=== PATIENT | female | born 1975 | race Caucasian/White ===

== ENCOUNTER → 2018-05-22 13:40 | Outpatient (CLI) | payer BC, SELFPAY ==
[2018-05-25 12:43] LABS: HPV Reflexed? NOT INDICATED
== END ==
PROVIDERS: Visit Provider Obstetrics & Gynecology
DX: Z12.4 Encounter for screening for malignant neoplasm of cervix (principal)
CPT/HCPCS: 88175; G0145

== ENCOUNTER → 2018-06-23 09:58 | Outpatient (CLI) | payer BC, SELFPAY ==
--- NOTE | 2018-06-23 10:14 | BI_ITS ---
MAMMOGRAPHY - BILATERAL SCREENING REASON FOR EXAM: Female, 42 years old. Routine annual screening examination. PERTINENT HISTORY: Non-contributory. TECHNIQUE: Digital bilateral breast eris (3D mammographic acquisition) in the CC and MLO projections. 2-D mediolateral oblique (MLO) and craniocaudad (CC) views of both breasts were obtained. CAD: Full Field Digital Mammography with Computer Added Detection was performed. COMPARISON: Comparison is made with prior study dated May 25, 2017 and September 30, 2014. FINDINGS: Breast Composition: The breasts are heterogeneously dense, which may obscure small masses. There are no dominant masses or suspicious calcifications. Stable 1.1 cm x 0.8 cm well-defined nodular density in the superior deep slightly medial aspect of the left breast. Stable retroareolar nodule in the right breast. Prior ultrasound demonstrated the right nodule to be a cyst. No other significant abnormalities are identified. There has been no significant change since the prior study. BI/SCREENING MAMM (CAD), BILAT IMPRESSION: Stable bilateral screening mammogram. Yearly follow-up mammogram recommended. (A) ASSESSMENT CATEGORY: BIRADS Category 2: Benign. A letter regarding these results will be sent to the patient by the facility within 30 days. Approximately 10% of breast cancers are not detected by mammography. A normal mammogram should not delay biopsy of a clinically suspicious abnormality. [id number] Electronically Signed: Alexey Joseph MD at 10:11 EST , Service support ,
== END ==
PROVIDERS: Family Provider Internal Medicine; PCP Internal Medicine; Referring Provider Obstetrics & Gynecology; Visit Provider Obstetrics & Gynecology
DX: Z12.31 Encounter for screening mammogram for malignant neoplasm of breast (principal)
CPT/HCPCS: 77063; 77067

== ENCOUNTER → 2019-01-21 | Outpatient (CLI) | payer BC, SELFPAY ==
--- NOTE | 2019-01-21 12:28 | ECHOD_ITS ---
Reason For Study: Chest Pain Procedure This was a 2D Doppler, Color Flow transthoracic echocardiogram. Exam performed in department. Left Ventricle Normal LV size. Left ventricular systolic function is normal. The estimated ejection fraction is 65 %. No evidence for diastolic dysfunction. No regional wall motion abnormalities noted. Right Ventricle Normal RV size. Normal systolic function. Atria Normal left atrium. Normal right atrium. Bubble contrast study negative for right to left interatrial shunt. Mitral Valve Normal mitral valve. Tricuspid Valve Normal tricuspid valve. Mild tricuspid valve insufficiency. Pulmonic Valve Normal pulmonic valve. Great Vessels Normal aortic root. The pulmonary artery is normal size. Normal inferior vena cava. Pericardium/Pleural No pericardial effusion. Medication Performed a rapid injection of agitated mix of 9 cc saline and 1cc air to assess for atrial septal defect. MMode/2D Measurements & Calculations LVIDd: 4.2 cm IVSd: 0.91 cm Ao root diam: 3.0 cm LVIDs: 2.4 cm LVPWd: 0.94 cm RVDd: 3.6 cm FS: 42.9 % LAV(MOD-bp): 43.2 ml LVAd ap4: 25.5 cm2 SV(MOD-sp4): 50.5 ml LAV(MOD-bp) Indexed: 26.0 ml/m2 EDV(MOD-sp4): 72.9 ml LAV(MOD-sp2): 46.6 ml EDV(sp4-el): 75.1 ml LAV(MOD-sp4): 40.0 ml LVAs ap4: 12.3 cm2 ESV(MOD-sp4): 22.5 ml ESV(sp4-el): 23.2 ml EF(MOD-sp4): 69.2 % EF(sp4-el): 69.1 % SV(sp4-el): 51.9 ml LA A4 area: 15.4 cm2 LA dimension(2D): 3.7 cm RA A4 area: 13.1 cm2 Doppler Measurements & Calculations MV E max dereck: 81.9 cm/sec Lat Peak E' Dereck: 13.7 cm/sec Med Peak E' Dereck: 6.3 cm/sec MV A max dereck: 67.6 cm/sec E/E' lat: 6.0 E/E' med: 13.0 MV E/A: 1.2 Ao V2 max: 163.4 cm/sec LV V1 max: 128.0 cm/sec PA V2 max: 83.8 cm/sec Ao max P.7 mmHg LV V1 max P.5 mmHg Ao V2 mean: 105.0 cm/sec Ao mean P.1 mmHg Ao V2 VTI: 31.4 cm TR max dereck: 218.7 cm/sec TR max P.1 mmHg Interpretation Summary Normal LV size. Left ventricular systolic function is normal. The estimated ejection fraction is 65 %. No evidence for diastolic dysfunction. Bubble contrast study negative for right to left interatrial shunt. Ordering Physician: Ana Bell Referring Physician: Ana Bell Performed By: Bernie Granger, HANNAH, RVT
--- NOTE | 2019-01-21 13:44 | CT_ITS ---
STUDY: CARDIAC CALCIUM SCORING - CT CHEST REASON FOR EXAM: Female, 43 years old. Family history heart disease hypertension RADIATION DOSAGE (If Supplied By Facility): CTDIvol = ( 12.19 ) mGy, DLP = ( 219.42 ) mGycm TECHNIQUE: Axial non-enhanced images were acquired through the heart for the sole purpose of measuring coronary artery calcium. Individualized dose optimization techniques were used for this CT. COMPARISON: None. FINDINGS: Visualized surrounding anatomy: Normal. Left Main Coronary Artery: 0 Left Anterior Descending Artery: 0 Left Circumflex Artery: 0 Right Coronary Artery: 0 Other: Total Calcium Score: 0 CT/Limited Chest CT w/CCTA IMPRESSION: A Calcium Score of 0 places the patient in the approximate 50 percentile, based on the [facility] data calculator. Please go to: [email or web address]-[email or web address]/Calcium/input.aspx , for a description of the calculator. Electronically Signed: Alpesh Perez MD at 16:06 EDT , Service support ,
[2019-01-21 13:59] VITALS: BP 125/74; PULSE 60; RESP 18; O2SAT 100; BMI 24.0
--- NOTE | 2019-01-22 13:05 | CA.SCORE ---
Calcium Scoring Date of Study:: 01/21/19 Coronary Calcium Scoring: High-resolution Computed Tomographic imaging of the chest was performed on [01/21/2019], with particular attention paid to the coronary arteries. Images from the examination were analyzed for the presence and extent of coronary artery calcification , using coronary calcium quantification software. The patient tolerated the procedure well and there were no complications. The results of the coronary calcification analysis are provided below. - Findings Left Main (LM): 0 Left Anterior Descending (LAD): 0 Left Circumflex (LCX): 0 Right Coronary Artery (RCA): 0 Total Agatston Score: 0 Percentile Rankin Calcium Scoring Interpretation: 0 No identifiable atherosclerotic plaque. Very low cardiovascular disease risk. <5% chance of presence coronary artery disease A Negative Examination 1-10 Minimal Plaque burden. Significant coronary artery disease very unlikely. 11-100 Mild plaque burden. Likely mild or minimal coronary atherosclerosis. 101-400 Moderate plaque burden Moderate non-obstructive coronary artery disease highly likely. Over 400 Extensive plaque burden. High likelihood of at least one significant coronary stenosis (>50% diameter) Conclusion: The total calcium score (0) is below the 50th percentile for women between the ages of 45 and 49. (Exact percentile calculated to be 50%; this means 49% of the population has similar calcium score and 50% of the population is a higher calcium score than this patient.) A full evaluation of cardiac risk including assessment of all conventional risk factors, and the scores and percentile rankings reported herein should be evaluated in this context.
== END | disposition home or self-care (01) ==
PROVIDERS: Family Provider Internal Medicine; PCP Internal Medicine; Referring Provider Internal Medicine; Visit Provider Internal Medicine
DX: R07.9 Chest pain, unspecified (principal); R00.2 Palpitations; Z82.49 Family history of ischemic heart disease and other diseases of the circulatory system
CPT/HCPCS: 75571; 76380; 93225; 93226; 93306; A4216

== ENCOUNTER → 2020-02-06 | Outpatient (CLI) | payer OTHER, SELFPAY ==
[2019-01-21 13:59] VITALS: BMI 24.0
--- NOTE | 2020-02-06 14:45 | EMB_PTH ---
PATIENT: NI PARKER LOC: [facility] U#:[id number] AGE/SX: 44/F ROOM: RE02/06/[address]: Dr. Ni Paul DO : 1975 BED: DIS: 02/06/2020 SPEC #: [id number] RECD: 02/06/20 17:20 STATUS: JUAN MANUEL REMik #: [id number] TJ: 02/06/20 14:[address]: Ni Paul DEPT: SURGICAL PATHOLOGY RECD BY: Ayaka Carrion ENTERED: 02/07/20 07:18 SP TYPE: ENDOM BX/C DEAN DR: Dr. Ana Bell DO Tissues: Endometrium, NOS Procedures: Surgery Specimen Level IV HEADER OPERATION: Endometrial biopsy PRE-OP DIAGNOSIS: Menorrhagia; abnormal uterine bleeding TISSUE SUBMITTED: Endometrial biopsy MICROSCOPIC DIAGNOSIS Endometrium, biopsy: Proliferative endometrium with focal glandular breakdown. AM:cassie 02/10/20 MICROSCOPIC DESCRIPTION Slides are reviewed. GROSS DESCRIPTION Received in fixative is one container labeled with the patient's name and designated EMB. The specimen consists of multiple fragments of harley-pink to hemorrhagic soft tissue that in aggregate measure 2.5 x 2 x 0.2 cm. The specimen is totally submitted in one cassette. / SJ:cassie 02/07/20 TC:5 CPT: 17812
== END | disposition home or self-care (01) ==
LOC: LABSPEC 16:58
PROVIDERS: PCP Internal Medicine; Visit Provider Student in an Organized Health Care Education/Training Program
DX: N93.9 Abnormal uterine and vaginal bleeding, unspecified (principal)
CPT/HCPCS: 88305

== ENCOUNTER → 2020-02-12 | Outpatient (CLI) | payer OTHER, SELFPAY ==
[2019-01-21 13:59] VITALS: BMI 24.0
--- NOTE | 2020-02-12 15:17 | BI_ITS ---
MAMMOGRAPHY - BILATERAL SCREENING REASON FOR EXAM: Female, 44 years old. Routine annual screening examination. PERTINENT HISTORY: Non-contributory. TECHNIQUE: Digital bilateral breast ani (3D mammographic acquisition) in the CC and MLO projections. 2-D mediolateral oblique (MLO) and craniocaudad (CC) views of both breasts were obtained. CAD: Full Field Digital Mammography with Computer Added Detection was performed. COMPARISON: Comparison is made with prior study dated 06/23/2018 and 05/25/2017. FINDINGS: Breast Composition: The breasts are heterogeneously dense, which may obscure small masses. There are no dominant masses or suspicious calcifications. Stable 1.1 cm x 0.9 cm well-defined nodule in the superior deep slightly medial aspect of the left breast. No other significant abnormalities are identified. There has been no significant change since the prior study. BI/SCREEN MAMM (CAD) W/ANI BILAT IMPRESSION: Stable bilateral screening mammogram. Yearly follow-up mammogram recommended. (A) ASSESSMENT CATEGORY: BIRADS Category 2: Benign. A letter regarding these results will be sent to the patient by the facility within 30 days. Approximately 10% of breast cancers are not detected by mammography. A normal mammogram should not delay biopsy of a clinically suspicious abnormality. [id number] Electronically Signed: Alexey Joseph, at 7:04 EDT , Service support ,
== END | disposition home or self-care (01) ==
LOC: OPBI 15:14
PROVIDERS: PCP Internal Medicine; Referring Provider Student in an Organized Health Care Education/Training Program; Visit Provider Student in an Organized Health Care Education/Training Program
DX: Z12.31 Encounter for screening mammogram for malignant neoplasm of breast (principal)
CPT/HCPCS: 77063; 77067

== ENCOUNTER 2020-02-27 12:52 | Day surgery (SDC) | payer OTHER, SELFPAY ==
[2019-01-21 13:59] VITALS: BMI 24.0
[2020-02-20 14:44] LABS: Hematocrit 40.5 % (37-47); Hemoglobin 13.2 g/dL (12.0-15.0); Mean Corp Hgb Conc 32.6 g/dL (32-36); Mean Corpuscular Hgb 31.9 pg (27.0-32.0); Mean Corpuscular Volume 97.8 fL (81-99); Mean Platelet Vol. 10.6 fl (6.2-12.0); Platelet Count 343 K/mm3 (150-450); RBC Distribution Width CV 11.9 % (11.6-14.6); Red Blood Count 4.14 M/mm3 (4.2-5.4); White Blood Count 8.5 K/mm3 (4.4-11.0)
--- NOTE | 2020-02-26 18:49 | PCM.HPOB.BLA ---
History and Physical Date of Admission: 02/27/20 Surgical History and Physical Date: 02/26/2020 Name: NI PARKER Age: 44 Date of : 1975 Ni Parker, a 44 year old female 1 0 0 0 1, presents for Hysteroscopy, D, ablation on February 27, 2020 at 2:15. PT is A 42 yo female, who presents with heavy menstrual bleeding. LMP 01/17/20 monthly and lasting 6 days. Stating that she is having heavier bleeding with menses no cramping. Bleeding is affecting daily life. She underwent an endometrial biopsy which was benign. Pelvic US showed a 7.5x5.4x5.1 cm uterus with a 13 mm endometrial stripe. Normal appearing ovaries. Spouse had vasectomy. All options of management of menorrhagia had been discussed including: ablation, OCP, IUD, depo-provera. Patient elects for Hysteroscopy, D+C, Ablation scheduled @ [facility] 02/27/20. MEDICATIONS HISTORY: Denies ALLERGIES: NKA and No Known Drug Allergies Infections - chicken pox Illnesses - no serious past illnesses and acne Accidents - no injuries of consequence Hospitalizations - see surgery and Childbirth celiac disease Review of Systems: GENERAL - Denies fever, or chills SKIN - Denies skin changes EYES - wears eye glasses EARS - Denies difficulty hearing NOSE - Denies nasal congestion or bleeding MOUTH - Denies sore throat or difficulty swallowing NECK - Denies pain or swelling RESPIRATORY - Denies shortness of breath or wheezing CARDIOVASCULAR - Denies palpitations or chest pain GASTROINTESTINAL - Denies nausea, vomiting, diarrhea, constipation GENITOURINARY - heavy bleeding with menses MUSCULOSKELETAL - Denies joint or muscle pain NEUROLOGICAL - Denies localized numbness or weakness PSYCHIATRIC - Denies depression or anxiety ENDOCRINE - Denies heat or cold intolerance, weight loss or gain HEMATO-IMMUNOLOGIC - Denies excesive bleeding with cuts SOCIAL HISTORY: Alcohol Use - socially Smoking - denies smoking Diet - balanced Diet Lifestyle - moderate stress lifestyle, active lifestyle and Exercise - very active Seat Belt Use - always Employer - [employer] Job Description - First Officer Illicit Drug Use - denies use of street drugs Sexual Activity - Hours Worked - 40 hours per week Spouse-Sig Other Name - Luis Spouse-Sig Other Occupation - Billing Clerk Children Name(s) - [place] Control - Vasectomy FAMILY HISTORY: Family history of DM II and Heart Disease. Maternal history of Cancer. Paternal history of Heart Disease. MENSTRUAL HISTORY: LMP Known?- DefiniteAmount/Duration - 6 days, Regularity - heavy, Frequency - 24-25 days, LMP - 01/17/20, Age Onset Menarche - 10 PAST PREGNANCIES: Total Pregnancies - 1; Full Term Pregnancies - 1; Premature - 0; Abortions, Induced - 0; Abortions, Spontaneous - 0; Ectopics - 0; Multiple Births - 0; Living Children - 1 SURGICAL HISTORY: 1. T and A CHILD ; - 2. fusion of C spine vertebrae in July 2016 ; Dr. Winston - parasthesia, nerve compression PHYSICAL EXAM BP- 124/78 Sitting, Right arm, regular cuff Temp- 97.7 Taken Orally Weight- 156.00113 lbs Height- 63.50 inch BMI:27.33 CONSTITUTIONAL - NAD, well nourished, and well developed SKIN - No rash, lesions, or ulcers HEENT - Normocephalic, PERRLA, EOMI LUNGS - normal respiratory rate and rhythm EXTREMITIES - No edema or calf tenderness NEUROLOGICAL - Cranial nerves II-XII grossly intact PSYCHIATRIC - A and O to time, place, person, mood and affect PELVIC: normal appearing external genitalia, normal appearing cervix and vagina. uterus nontender 8 cm. Laboratory Last Values WBC 8.5 K/mm3 (4.4-11.0) 02/20/20 14:16 RBC 4.14 M/mm3 (4.2-5.4) L 02/20/20 14:16 Hgb 13.2 g/dL (12.0-15.0) 02/20/20 14:16 Hct 40.5 % (37-47) 02/20/20 14:16 MCV 97.8 fL (81-99) 02/20/20 14:16 MCH 31.9 pg (27.0-32.0) 02/20/20 14:16 MCHC 32.6 g/dL (32-36) 02/20/20 14:16 RDW Std Deviation 43.0 fl (35.1-43.9) 02/20/20 14:16 RDW Coeff of Gabe 11.9 % (11.6-14.6) 02/20/20 14:16 Plt Count 343 K/mm3 (150-450) 02/20/20 14:16 MPV 10.6 fl (6.2-12.0) 02/20/20 14:16 COVID-19 (CINDA) Not Detected (Not Detected) 02/20/20 13:30 Blood Type O POSITIVE 02/20/20 14:16 Antibody Screen NEGATIVE 02/20/20 14:16 ASSESSMENT/PLAN: 1. Excessive And Frequent Menstruation With Regular Cycle Plan for hysteroscopy, dilation and curettage, endometrial ablation. R/B/A discussed. Risks include, but are not limited to: risk of bleeding to the point of transfusion, infection, injury to surrounding tissue (bowel, bladder requirring barber, uterine perforation), VTE, ICU admission Pt aware and consented. All questions answered
[2020-02-27] VITALS (8 sets, daily range): BP systolic 106–135; BP diastolic 61–74; PULSE 53–63; RESP 16; TEMP 36.2–37.5; O2SAT 97–100; BMI 27.5
[2020-02-27 13:23] LABS: Internal QC Validated? YES +Cl - CLEAR BKGD; Pregnancy, Urine Negative Negative
[2020-02-27] MEDS: Lactated Ringers 1,000 ML 100 ML IV (13:56)
--- NOTE | 2020-02-27 15:31 | DCINST_ITS ---
Discharge Diet: No Restrictions Discharge Activity: Return to Normal Activity May resume sexual activity in: 4 weeks Weight Bearing Status: Weight bearing as tolerated Call your doctor if you observe: Fever of 101 or Higher, Inability to urinate, Inability to have a bowel movement, Using more than one pad per hour Allergies/Adverse Reactions: Allergies No Known Allergies Allergy (Verified 10/14/16 18:07) Medications to take at Discharge Cetirizine HCl [Zyrtec] 10 mg PO DAILY 07/09/13 Multivitamins,Therapeutic [Multivitamin] 1 tablet PO DAILY 07/09/13 Primary Care Physician: Ana Bell DO [Primary Care Provider] - Test Results: Test results from this visit will be discussed in further detail at your follow- up appointment, if applicable. Please Follow Up With: Ni Paul DO When: 2 weeks
--- NOTE | 2020-02-27 15:32 | PCM.OPRPT ---
Report of Operation Date of Procedure: 02/27/20 Pre-Operative Diagnosis: Menorrhagia Post-Operative Diagnosis: Menorrhagia Surgery/Procedure Performed:: Hysteroscopy, endometrial ablation Description of Surgical Findings:: Normal-appearing external genitalia. Normal-appearing cervix, minimal uterine descensus. Normal-appearing endometrial canal without fibroids or polyps. Bilateral tubal ostia noted. Type of Anesthesia:: MAC Estimated Blood Loss (mL): 20 Fluids Replaced: 700 Description of Procedure: Patient taken to the operating room placed under MAC. Patient placed in the dorsal lithotomy position and prepped and draped in usual sterile fashion. Bladder drained 50 cc urine. Weighted speculum placed in the posterior vagina and cervix grasped with a single-tooth tenaculum. Cervix sequentially dilated and sounded to 9 cm. Hysteroscope used to explore the endometrial cavity noting no fibroids or polyps. Sari device opened cavity length of 4.5 cm as cervical length was measured at 4.5 cm. Cavity assessment passed, ablation completed. Hysteroscope replaced through the cervical canal noting adequate ablation. Silver nitrate used on tenaculum site, hemostatic. At the end of the procedure all needle, lap, sponge counts were correct x3.
== END 2020-02-27 17:39 | disposition home or self-care (01) ==
LOC: SDC 12:52 → AC 12:55
PROVIDERS: Anesthesiology; PCP Internal Medicine; Referring Provider Student in an Organized Health Care Education/Training Program; Visit Provider Student in an Organized Health Care Education/Training Program
PROC: 0U5B8ZZ Destruction of Endometrium, Via Natural or Artificial Opening Endoscopic (ICD-10-PCS; CPT 58558; principal; 2020-02-27 14:15)
DX: N92.0 Excessive and frequent menstruation with regular cycle (principal); Z20.828 Contact with and (suspected) exposure to other viral communicable diseases
CPT/HCPCS: 00952; 58563; 36415; 81025; 85027; 86850; 86900; 86901; 87635; C9803; J7120; U0003

== ENCOUNTER → 2021-02-12 10:36 | Outpatient (CLI) | payer OTHER, SELFPAY ==
--- NOTE | 2021-02-12 10:37 | BI_ITS ---
MAMMOGRAPHY - BILATERAL SCREENING REASON FOR EXAM: Female, 45 years old. Routine annual screening examination. PERTINENT HISTORY: Non-contributory. TECHNIQUE: Digital bilateral breast ani (3D mammographic acquisition) in the CC and MLO projections. 2-D mediolateral oblique (MLO) and craniocaudad (CC) views of both breasts were obtained. CAD: Full Field Digital Mammography with Computer Added Detection was performed. COMPARISON: Comparison is made with prior study 02/12/2020 and 06/23/2018. FINDINGS: Breast Composition: There are scattered areas of fibroglandular density. There are no dominant masses or suspicious calcifications. Stable 1 cm x 1.1 cm well-defined nodule in the superior deep slightly medial aspect of the left breast. No other significant abnormalities are identified. There has been no significant change since the prior study. BI/SCRN MAMM (CAD)W/ANI BILAT IMPRESSION: Stable bilateral screening mammogram. Yearly follow-up mammogram recommended. (A) ASSESSMENT CATEGORY: BIRADS Category 2: Benign. A letter regarding these results will be sent to the patient by the facility within 30 days. Approximately 10% of breast cancers are not detected by mammography. A normal mammogram should not delay biopsy of a clinically suspicious abnormality. [id number] Electronically Signed: Alexey Joseph MD at 11:26 EDT , Service support ,
== END ==
PROVIDERS: PCP Internal Medicine; Referring Provider Student in an Organized Health Care Education/Training Program; Visit Provider Student in an Organized Health Care Education/Training Program
DX: Z12.31 Encounter for screening mammogram for malignant neoplasm of breast (principal)
CPT/HCPCS: 77063; 77067

== ENCOUNTER → 2021-05-03 | Outpatient (CLI) | payer OTHER, SELFPAY ==
[2021-05-07 09:25] LABS: HPV APTIMA, High Risk Negative (Negative)
== END | disposition home or self-care (01) ==
LOC: LABSPEC 13:03
PROVIDERS: PCP Internal Medicine; Visit Provider Student in an Organized Health Care Education/Training Program
DX: Z12.4 Encounter for screening for malignant neoplasm of cervix (principal)
CPT/HCPCS: 87624; 88175; G0145

== ENCOUNTER → 2022-06-07 | Outpatient (CLI) | payer OTHER, SELFPAY ==
--- NOTE | 2022-06-07 08:13 | BI_ITS ---
MAMMOGRAPHY - BILATERAL SCREENING REASON FOR EXAM: Female, 46 years old. Routine annual screening examination. PERTINENT HISTORY: Non-contributory. TECHNIQUE: Digital bilateral breast ani (3D mammographic acquisition) in the CC and MLO projections. 2-D mediolateral oblique (MLO) and craniocaudad (CC) views of both breasts were obtained. CAD: Full Field Digital Mammography with Computer Added Detection was performed. COMPARISON: Comparison is made with prior study dated 02/12/2021 and 02/12/2020. FINDINGS: Breast Composition: There are scattered areas of fibroglandular density. Stable 1 cm x 1.1 cm well-defined nodule in the superior deep slightly medial aspect of the left breast. No other significant abnormalities are identified. There has been no significant change since the prior study. BI/SCRN MAMM (CAD)W/ANI BILAT IMPRESSION: Stable bilateral screening mammogram. Yearly follow-up mammogram recommended. (A) ASSESSMENT CATEGORY: BIRADS Category 2: Benign. A letter regarding these results will be sent to the patient by the facility within 30 days. Approximately 10% of breast cancers are not detected by mammography. A normal mammogram should not delay biopsy of a clinically suspicious abnormality. [id number] Electronically Signed: Alexey Joseph MD at 9:24 EST ,
== END | disposition home or self-care (01) ==
LOC: OPBI 08:12
PROVIDERS: PCP Internal Medicine; Referring Provider Student in an Organized Health Care Education/Training Program; Visit Provider Student in an Organized Health Care Education/Training Program
DX: Z12.31 Encounter for screening mammogram for malignant neoplasm of breast (principal)
CPT/HCPCS: 77063; 77067

== ENCOUNTER 2023-03-08 06:30 | Day surgery (SDC) | payer OTHER, SELFPAY ==
[2023-03-08] VITALS (7 sets, daily range): BP systolic 94–120; BP diastolic 65–73; PULSE 53–66; RESP 16–19; TEMP 36.3–36.9; O2SAT 96–100; BMI 27.8
[2023-03-08] MEDS: Lactated Ringers 1,000 ML 15 ML IV (07:03)
--- NOTE | 2023-03-08 07:18 | PCM.HP.BLA ---
History and Physical Date of Admission: 03/08/23 Date of Service: 02/15/23 MR#: [id number] Acct: [id number] Name: VERONIQUE PARKER Rep #: [id number] : 1975 Provider: Dr. Jessie Hackett MD Age/Sex: 47/F Location: [facility] Status: Signed Intake Vital Signs 02/02/2111:02 02/16/2308:39 Height 0 in 5 ft 2 in Weight: 155 lb BMI 28.3 BP 148/87 H Blood Pressure Location Rt brachial Position Sitting Respiration 16 Intake Visit Reasons: COLONOSCOPY/3 EXTERNAL HEMORRHOIDS Chief Complaint: c-scope/hemorrhoids Principal Planner Required: No Is patient in pain?: No Allergies No Known Allergies Allergy (Verified 02/15/23 08:40) Medications cetirizine 10 mg capsule (Zyrtec) 10 mg PO DAILY 07/09/13 [History Confirmed 02/19/20] multivitamin with folic acid 400 mcg tablet (Thera) 1 tab PO DAILY 07/09/13 [History Confirmed 02/19/20] Lactobacillus combo no.23 14 billion cell capsule (Abbe Probiotic) cell PO 02/15/23 [History Confirmed 02/15/23] cinnamon bark 500 mg capsule (Cinnamon) 500 mg PO DAILY 02/15/23 [History Confirmed 02/15/23] mecobalamin (vitamin B12) 500 mcg chewable tablet mcg PO 02/15/23 [History Confirmed 02/15/23] doxjwkli-ftrnml-wtf-fim-dxp-obqv-horse 100 mg-100 mg-100 mg-125 mg tab tab PO 02/15/23 [History Confirmed 02/15/23] PFSH Medical History (Updated 02/16/23 @ 11:[address] Jessie Hackett MD) Hemorrhoids Neck pain Surgical History (Updated 02/15/23 @ 08:39 by Aleisha Altamirano) S/P cervical discectomy S/P tonsillectomy Status post LASIK surgery Social History (Updated 02/15/23 @ 08:39 by Aleisha Altamirano) Smoking Status: Never smoker alcohol intake: current HPI HPI HPI: 47-year-old female presents due to hemorrhoids and screening colonoscopy. Patient never had previous colonoscopy. Patient states that she has had issues with hemorrhoids her about 15 years ago. Patient denies any family history of colon cancer or any chronic abdominal pain/nausea/vomiting/reflux. Patient states she did have an EGD about 10 years ago as she does have celiac. Patient states she has bowel movements daily. Patient states that she can have some bleeding from her hemorrhoids if she has constipation. Patient did see Dr. Luis Gaviria in [place] for infrared treatments of the hemorrhoids patient had 2-3 treatments and had a lot of pain after last one did not go back. ROS General General: Yes weight change; No appetite, fatigue, colon cancer, breast cancer or weakness HEENT HEENT: Yes eye injury and eye surgery; No difficulty swallowing, swollen glands or hoarseness Endo Endocrine: No thyroid disease, diabetes mellitus, thyroid cancer, Hair loss, heat intolerance or cold intolerance Skin Skin: No rash or changing moles Breast Breast: No left breast lump, right breast lump, nipple discharge, breast pain, abnormal mammogram, abnormal US or breast enlargement Musc Musculoskeletal: No back problems, arthritis, rheumatoid arthritis, gout or joint pain Cardio Cardiovascular: No murmur, pacemaker, heart disease, atrial fibrillation, high blood pressure, heart attack, heart stent, palpitations, shortness of breat with exertion or chest pain Psych Psychiatric: No depression, anxiety or hearing voices Resp Respiratory: No shortness of breath, No sleep apnea, No cough, No COPD, No asthma, No emphysema and No wheezing Gastro Gastrointestinal: No abdominal pain, No nausea or vomiting, No diarrhea, No constipation, No blood in stool, No acid reflux, Yes hemorrhoids, No ulcers, No gallbladder problem and No black,tarry stools Zachariah Hematologic: No blood thinners, No blood disorders, No bleeding, No anemia and No blood clots Neuro Neurologic: No system reviewed and no additional complaints, except as documented, No as per HPI, No abnormal gait, No abnormal hearing, No abnormal movements, No abnormal speech, No behavioral changes, No burning sensations, No confusion, No convulsions, No disequilibrium, No dizziness, No localized weakness, No frequent falls, No headache(s), No lack of coordination, No loss of vision, No memory loss, No numbness, No other visual disturbances, No radicular pain, No restless legs, No sensory deficit, No syncope, No tingling, No tremor(s), No weakness and No other Exam Const General: cooperative, healthy appearing and no acute distress Nutritional Appearance: well nourished [facility] Head: normal to inspection Resp Effort & Inspection: normal respiratory effort Auscultation: clear to auscultation bilaterally Cardio Rate: regular rate Rhythm: regular rhythm GI Inspection: non-distended Palpation: soft, no guarding, no hernias and nontender Other: OLGA: Residual hemorrhoidal tissue anteriorly does communicate to internal hemorrhoid tissue?no swelling at this time, no mass, no blood on exam Skin General: no rashes or lesions noted Neuro General: patient alert, patient awake and patient oriented x3 Extrem General: no clubbing, cyanosis or edema Psych Affect: normal affect Assessment and Plan Assessment and Plan (1) Hemorrhoids: Status: Acute (2) Screening for colon cancer: Status: Acute Orders: Orders Colonoscopy 03/08/23 Plan Did discuss with patient she does have residual hemorrhoidal tissue and likely some internal hemorrhoids that could be an issue from time to time. Recommend continued to avoid constipation or diarrhea. Discussed with patient options for treating hemorrhoids could include banding if they are only internal however hers to include an external component. Discussed hemorrhoidectomy as well as the fact postop this surgery can be quite painful as she is not really having any problems with her hemorrhoids currently. Did recommend that she did need medication to recommend suppository with hydrocortisone 2.5%. Currently these areas are not inflamed. Patient will call back if she does need a prescription from our pharmacy as we have mailed make a compound for $40 [id number] as typically compounds or suppositories or not really covered by insurance. I have discussed the above with the patient. I have offered the patient colonoscopy for evaluation. I have explained the risks/benefits of the procedure and described the procedure. I have discussed the risks with the patient, including but not limited to: infection, bleeding, perforation of the GI tract requiring emergency surgery, inability to complete the procedure, injury to any internal organs, complications of anesthesia, etc. - the patient understands and agrees to proceed. I have answered all the patient's questions to the patient's satisfaction and the patient has no further questions. The patient has been given instructions for the colon cleansing preparation. 1 day of clears, MiraLAX Dulcolax split prep. Jessie Hackett M.D. Pager: [phone] [facility] [address] [place] [address], [facility], [address] [place] [address] Office: [phone] Coding Level of Care Code Off vis,new,level 3 Diagnoses Hemorrhoids K64.9 Screening for colon cancer Z12.11 02/16/23 1135 <Electronically signed by Jessie Hackett MD> Date Jessie Hackett MD
--- NOTE | 2023-03-08 07:52 | OP.CCLET_ITS ---
03/08/2023 Ana Bell [address] [place] [address] Re : Colonoscopy procedure for Ni Clark Dear Dr. Bell This procedure was performed on Wednesday, March 08, 2023. My impressions and recommendations are as follows: Impressions : - Hemorrhoids found on perianal exam. - Non-bleeding internal hemorrhoids. - Diverticulosis in the sigmoid colon. - The entire examined colon is normal. - No specimens collected. Recommendations : - Discharge patient to home. - High fiber diet. - Continue present medications. - Repeat colonoscopy in 10 years for screening purposes. My findings are described in the full procedure note, which is enclosed. If I can be of further assistance, please feel free to contact me at Doctor phone number(s): , Work: . Sincerely, MD Jessie Montelongo MD 03/08/2023 7:51:28 AM This report has been signed electronically.
--- NOTE | 2023-03-08 07:52 | OP.COLON_ITS ---
Patient Name: Ni Clark Procedure Date: 03/08/2023 7:14 AM Date of : 1975 Age: 47 Procedure: Colonoscopy Indications: Screening for colorectal malignant neoplasm Providers: Jessie Hackett MD Referring MD: Jessie Hackett MD Medicines: Monitored Anesthesia Care Patient Profile: This is a 47 year old female. Last Colonoscopy: none. The patient's first colonoscopy is today. Complications: No immediate complications. Procedure: Pre-Anesthesia Assessment: - Prior to the procedure, a History and Physical was performed, and patient medications and allergies were reviewed. The patient's tolerance of previous anesthesia was also reviewed. The risks and benefits of the procedure and the sedation options and risks were discussed with the patient. All questions were answered, and informed consent was obtained. Prior Anticoagulants: The patient has taken no anticoagulant or antiplatelet agents. ASA Grade Assessment: Per anesthesia. After reviewing the risks and benefits, the patient was deemed in satisfactory condition to undergo the procedure. After I obtained informed consent, the scope was passed under direct vision. Throughout the procedure, the patient's blood pressure, pulse, and oxygen saturations were monitored continuously. The Colonoscope was introduced through the anus and advanced to the cecum, identified by the appendiceal orifice, ileocecal valve and palpation. The colonoscopy was performed without difficulty. The patient tolerated the procedure well. The quality of the bowel preparation was good. Scope In: 7:32:01 AM Scope Withdrawal Time 0 hours 7 minutes 11 seconds Scope Out: 7:44:33 AM Total Procedure Duration Time 0 hours 12 minutes 32 seconds Findings: Hemorrhoids were found on perianal exam. Non-bleeding internal hemorrhoids were found. The hemorrhoids were Grade I (internal hemorrhoids that do not prolapse). Scattered small-mouthed diverticula were found in the sigmoid colon. The entire examined colon appeared normal. Impression: - Hemorrhoids found on perianal exam. - Non-bleeding internal hemorrhoids. - Diverticulosis in the sigmoid colon. - The entire examined colon is normal. - No specimens collected. Recommendation: - Discharge patient to home. - High fiber diet. - Continue present medications. - Repeat colonoscopy in 10 years for screening purposes. Procedure Code(s): --- Professional --- G0121, PT, Colorectal cancer screening; colonoscopy on individual not meeting criteria for high risk Diagnosis Code(s): --- Professional --- Z12.11, Encounter for screening for malignant neoplasm of colon K64.0, First degree hemorrhoids K57.30, Diverticulosis of large intestine without perforation or abscess without bleeding CPT copyright 2021 [employer]. All rights reserved. The codes documented in this report are preliminary and upon smudger review may be revised to meet current compliance requirements. MD Jessie Montelongo MD 03/08/2023 7:51:28 AM This report has been signed electronically. Number of Addenda: 0 Note Initiated On: 03/08/2023 7:14 AM
== END 2023-03-08 08:50 | disposition home or self-care (01) ==
LOC: EN 06:30 → AC 06:33
PROVIDERS: PCP Internal Medicine; Referring Provider Internal Medicine; Visit Provider Surgery
PROC: 0DJD8ZZ Inspection of Lower Intestinal Tract, Via Natural or Artificial Opening Endoscopic (ICD-10-PCS; CPT 45378; principal; 2023-03-08 07:25)
DX: Z12.11 Encounter for screening for malignant neoplasm of colon (principal); K57.30 Diverticulosis of large intestine without perforation or abscess without bleeding; K64.0 First degree hemorrhoids; Z87.19 Personal history of other diseases of the digestive system; K90.0 Celiac disease; E78.00 Pure hypercholesterolemia, unspecified
CPT/HCPCS: 45378; J7120; J2405